=== PATIENT | female | born 1955 | race Caucasian/White ===

== ENCOUNTER 2017-02-03 05:19 | Inpatient (IN) | payer BC ==
[2017-01-14 08:31] VITALS: BMI 29.0
--- NOTE | 2017-01-14 09:10 | PAT Medication Instructions ---
Service Date Jan 14, 2017. Current Home Medication List Aspirin (Aspir-81), 1 TAB PO HS Atorvastatin (Lipitor), 1 TAB PO HS Cyanocobalamin (Vitamin B 12), 1,000 MG PO QPM Cyclobenzaprine Hcl (Flexeril), 2 TAB PO HS Montelukast Sodium (Montelukast Sodium), 1 TAB PO QPM Nortriptyline (Pamelor), 25 MG PO QPM [ibuprofin arthritis], 650 MG PO TID PRN for Pain Medication Instructions For Your Scheduled Surgery -Check with surgeon for instructions: [ibuprofin arthritis], 650 MG PO TID PRN for Pain -Check with surgeon/preparation room manager for instructions: ASA 81mg HS - Take the following medications as scheduled the night before surgery: Nortriptyline (Pamelor), 25 MG PO QPM Montelukast Sodium (Montelukast Sodium), 1 TAB PO QPM Cyclobenzaprine Hcl (Flexeril), 2 TAB PO HS Atorvastatin (Lipitor), 1 TAB PO HS Cyanocobalamin (Vitamin B 12), 1,000 MG PO QPM If you have any questions please call us at [phone] or [phone] or [phone]
[2017-01-14 09:45] LABS: BASO % 0.3 %; BASO ABS # 0.02 K/uL (0-0.2); COMPLETE YES; EOS % 2.5 %; HEMATOCRIT 41.3 % (37-47); IG% 0.2 %; LYMPH % 16.1 %; LYMPH ABS # 1.01 K/uL (1.2-3.4); MEAN CELL VOLUME 93.2 fL (80-100); MEAN CORPUSCULAR HEMOGLOBIN 31.2 pg (25-34); MEAN CORPUSCULAR HGB CONC 33.4 g/dl (32-36); MEAN PLATELET VOLUME 9.1 fL (7.4-10.4); MONO % 8.8 %; NEUT % 72.1 %; PLATELET COUNT 336 K/uL (130-400); RED BLOOD COUNT 4.43 M/uL (4.2-5.4); WHITE BLOOD COUNT 6.28 K/uL (4.8-10.8)
[2017-01-14 09:52] LABS: URINE APPEARANCE CLEAR (CLEAR); URINE BILIRUBIN NEG (NEG); URINE COLOR YELLOW; URINE EPITHELIAL CELL AUTO 0-5 /lpf (0-5); URINE NITRITE NEG (NEG); URINE PH 5.5 (4.5-7.5); URINE SPECIFIC GRAVITY 1.017 (1.000-1.030); UROBILINOGEN NEG (NEG)
[2017-01-14 09:58] LABS: MANUAL MICROSCOPIC REQUIRED? NO; REVIEW REQ? NO
[2017-01-14 10:26] LABS: BUN/CREATININE RATIO 11.7 (10-20); CALCIUM 8.9 mg/dl (8.5-10.1); CREATININE 0.87 mg/dl (0.60-1.20); POTASSIUM 4.2 mmol/L (3.5-5.1)
--- NOTE | 2017-01-29 17:43 | HISTORY & PHYSICAL EXAMINATION ---
DATE OF ADMISSION: 02/03/2017 CHIEF COMPLAINT: Neck pain radiates down the left arm. HISTORY OF PRESENT ILLNESS: The patient is a 61-year-old female with a longstanding history of neck pain radiating distally, extends in the left arm, goes into the hand, but pain is 7/10 on daily basis and 10/10 at its worst. She reports numbness in the left upper extremity as well. She has no right arm symptoms. Has failed to respond to conservative treatment. She has an MRI that shows C5-C6 disc herniation and stenosis with left-sided neural foraminal compression. She denies myelopathic symptoms. PAST MEDICAL HISTORY: Sleep apnea, history of shingles, psoriasis, osteoarthritis, neuroma, history of TIA, chronic headaches, dyslipidemia, coronary artery disease, degenerative disc disease, diverticulosis. PAST SURGICAL HISTORY: Tubal ligation, colonoscopy. ALLERGIES: SULFA. MEDICATIONS: Tylenol, albuterol, aspirin 81 mg, atorvastatin, Tessalon Perles, Pulmicort, Singulair, nortriptyline, Topamax, Vicodin. SOCIAL HISTORY: The patient is a nonsmoker, drinks alcohol socially. FAMILY HISTORY: Notable for renal failure, heart attack. REVIEW OF SYSTEMS: She denies fever, hearing loss, shortness of breath, chest pain, leg swelling, incontinence or weight loss. PHYSICAL EXAMINATION: GENERAL: The patient stands 5 feet and 7 inches tall, weighs 190 pounds. She ambulates with normal gait without ataxia. She has normal affect, answers questions appropriately. NECK: She has well preserved cervical range of motion with discomfort at end range and positive Spurling's to the left. Her neck shows no scars, no lymphadenopathy and no thyromegaly. HEART: She has a regular rate and rhythm on cardiac auscultation. LUNGS: Clear to auscultation bilaterally with symmetric chest excursion. No wheezing. EXTREMITIES: Exam reveals full upper extremity range of motion with no discomfort in impingement positions of the shoulders and symmetric normal deep tendon reflexes in both upper extremities. She has negative Al's bilaterally. She has 5/5 strength to mini motor testing of both upper extremities and intact sensation to light touch in all distributions. MRI was reviewed. She has a C5-C6 disc herniation& foraminal stenosis. ASSESSMENT AND PLAN: The patient has C5-C6 disc herniation, stenosis. She desires surgery due to chronicity of symptoms and failure of conservative treatment. We recommend C5-C6 ACDF. Risks are reviewed. She would like to proceed. Smoking cessation was counseled. She has been cleared medically by her PCP with stable coronary disease and has been cleared to hold ASA preoperatively and normal stress test. MARY
[2017-02-03] VITALS (15 sets, daily range): BP systolic 117–164; BP diastolic 68–91; PULSE 69–110; TEMP 35.9–36.8; O2SAT 94–97; Ht 171.4 cm; Wt 86.6 kg
[~2017-02-03] VITALS: Ht 171.4 cm; Wt 86.6 kg
[~2017-02-03 05:19] MED LIST: ASPI-232 PO; ATOR-24 PO; CEFAZOLIN 2000 MG/60 ML D5W IV SCH; CYAN1LOZ PO; CYCL10TA6 PO; IBUPROFEN PO; LACTATED RINGER'S 1000ML 1,000 ML IV SCH; MONT1TAB5 PO; NORT25CA PO; PREGABALIN 75 MG CAP PO SCH
[2017-02-03] MEDS ORDERED: TOPI25TA99 PO (05:52)
[2017-02-03] MEDS ORDERED: PREGABALIN 75 MG CAP PO SCH (06:00)
[2017-02-03] MEDS ORDERED: LACTATED RINGER'S 1000ML 1,000 ML IV SCH (06:00)
[2017-02-03] MEDS ORDERED: CEFAZOLIN 2000 MG/60 ML D5W IV SCH (06:00)
[2017-02-03] MEDS ORDERED: FENTANYL CITRATE INJ 50 MCG/1 ML 2 ML VIAL ONE ×3 (06:32→07:46)
[2017-02-03] MEDS ORDERED: MIDAZOLAM HCL 1 MG/ML 2ML VIAL ONE (06:32)
[2017-02-03] MEDS ORDERED: BACITRACIN 50000 UNIT VIAL ONE (06:50)
[2017-02-03] MEDS ORDERED: THROMBIN 5000 UNITS KIT ONE (06:50)
--- NOTE | 2017-02-03 07:17 | History & Physical Bridge Note ---
H&P Re-Evaluation Bridge Note: I have examined the patient, reviewed the History & Physical and in the interval since the performance of the History & Physical I have noted the following changes of clinical significance: No changes noted
[2017-02-03] MEDS ORDERED: HYDROmorphone INJ 2 MG/ML SYR/VIAL ONE (07:45)
[2017-02-03] MEDS ORDERED: LIDOCAINE HCL 2% 2 ML VIAL (20MG/ML) ONE (07:47)
[2017-02-03] MEDS ORDERED: ONDANSETRON INJ 2 MG/ML 2 ML VIAL ONE ×2 (07:48→08:31)
[2017-02-03] MEDS ORDERED: DEXAMETHASONE SOD INJ 4 MG/ML VIAL ONE (07:48)
[2017-02-03] MEDS ORDERED: ROCURONIUM BROMIDE 10 MG/ML 5 ML VIAL ONE (07:48)
[2017-02-03] MEDS ORDERED: FLOSEAL HEMOSTATIC MATRIX 5ML TOP ONE (08:21)
[2017-02-03] MEDS ORDERED: EpHEDrine SULFATE INJ 50 MG/ML AMP IV PRN (08:30)
[2017-02-03] MEDS ORDERED: ATROPINE SULFATE 0.1 MG/ML 5ML SYR IV PRN (08:30)
[2017-02-03] MEDS ORDERED: ONDANSETRON INJ 2 MG/ML 2 ML VIAL IV PRN ×2 (08:30→08:45)
[2017-02-03] MEDS ORDERED: GLYCOPYRROLATE INJ 0.2 MG/ML VIAL ONE (08:31)
[2017-02-03] MEDS ORDERED: NEOSTIGMINE METHYLSULFATE 1 MG/ML 10ML VIAL ONE (08:31)
--- NOTE | 2017-02-03 08:37 | [facility] Post Operative Brief Note ---
Immediate Operative Summary Operative Date Feb 03, 2017. Pre-Operative Diagnosis SPINAL STENOSIS Post-Operative Diagnosis SAME PREOP Procedure(s) Performed ANTERIOR CERVICAL DISCECTOMY AND FUSON , ALLOGRAFT, LDR Surgeon DR. Kamryn ACKERMAN Cut Off Saw Operator Surgeon(s) Georges KEENE PAC Estimated Blood Loss 10ml Findings dict Specimens NONE
[2017-02-03] MEDS ORDERED: IV FLUIDS COMPLETED PRN (08:45)
[2017-02-03] MEDS ORDERED: LORAZEPAM 0.5 MG TAB PO PRN (08:45)
[2017-02-03] MEDS ORDERED: NALOXONE HCL 0.4 MG/1 ML VIAL/CARP IV PRN (08:45)
[2017-02-03] MEDS ORDERED: ACETAMINOPHEN IV 1,000 MG in EMPTY BAG 0 ML IV PRN (08:45)
[2017-02-03] MEDS ORDERED: LORAZEPAM INJ 0.5 MG in SYRINGE 0.75 ML IV PRN (08:45)
[2017-02-03] MEDS ORDERED: DEXAMETHASONE INJ 8 MG in SYRINGE 0 ML IV PRN (08:45)
[2017-02-03] MEDS ORDERED: RACEPINEPHRINE 2.25% NEBU SOLN 0.5 ML VIAL INH PRN (08:45)
[2017-02-03] MEDS: FENTANYL CITRATE INJ 50 MCG/1 ML 2 ML VIAL IV PRN ×4 (09:15→09:40)
[2017-02-03] MEDS ORDERED: ESMOLOL HCL 10 MG/ML 10 ML VIAL ONE (09:18)
[2017-02-03] MEDS: HYDROmorphone INJ 1 MG/ML SYR IV PRN ×2 (09:54→09:59)
--- NOTE | 2017-02-03 10:17 | Anesthesiology Progress Note ---
Anesthesia Post Op Note Date & Time Feb 03, 2017 at 10:16 Vital Signs Pain Intensity: 5 Vital Signs Past 12 Hours Date Time Temp Pulse Resp B/P (MAP) Pulse Ox O2 Delivery O2 Flow Rate FiO2 02/03/17 09:49 36.5 90 16 143/82 97 Nasal Cannula 2 02/03/17 09:22 85 10 02/03/17 09:22 86 10 95 02/03/17 09:21 168/77 02/03/17 09:17 87 12 02/03/17 09:17 88 12 97 02/03/17 09:16 163/89 02/03/17 09:12 96 17 99 02/03/17 09:12 95 17 02/03/17 09:11 173/86 02/03/17 09:07 89 10 02/03/17 09:07 88 10 98 02/03/17 09:06 154/82 02/03/17 09:05 88 11 02/03/17 09:05 89 11 96 02/03/17 09:01 170/85 02/03/17 09:00 89 10 02/03/17 09:00 90 10 98 02/03/17 08:56 159/87 02/03/17 08:55 93 15 99 02/03/17 08:55 93 15 02/03/17 08:51 170/95 02/03/17 08:50 96 17 100 02/03/17 08:50 97 17 02/03/17 08:45 36.2 96 16 162/86 (101) 99 Mask 10 02/03/17 08:45 92 02/03/17 08:45 92 162/86 99 02/03/17 05:30 36.8 69 20 161/82 96 Room Air Notes Mental Status: alert / awake / arousable, participated in evaluation Pt Amnestic to Procedure: Yes Nausea / Vomiting: adequately controlled Pain: adequately controlled Airway Patency, RR, SpO2: stable & adequate BP & HR: stable & adequate Hydration State: stable & adequate Anesthetic Complications: no major complications apparent
--- NOTE | 2017-02-03 10:46 | [facility] Operative Report ---
Operative Report Operative Date Feb 03, 2017. Pre-Operative Diagnosis SPINAL STENOSIS Procedure(s) Performed ACDF C5-[address] Kamryn ACKERMAN Terrazzo Tile Maker Surgeon(s) Georges KEENE PAC Estimated Blood Loss 10ml Findings dict Specimens NONE Complication(s) None Description of Procedure PROCEDURE: After identification of the patient and operative level, patient was brought to the OR where they underwent induction of general anesthesia. Patient was then positioned supine on the [facility] OR table with all bony prominences well padded. Care was taken to avoid pressure on all bony prominences. Arms tucked to the sides and well padded. Shoulders were taped distally. Anterior neck was sterilely prepped and draped in usual fashion. Antibiotics were administered. Timeout was performed. Level was confirmed. A transverse skin incision was made on the right side of the neck at the level of the cricoid cartilage. I divided the platysma in line with the incision and performed routine anterior cervical exposure, blunt dissection of medial sternocleidomastoid. I identified the presumptive disc spaces and marked it with a marker and fluoroscopy. I then mobilized the longus colli and placed a self-retaining anterior cervical retractor and placed Icard pins in the body of C5 on C6. After placement of the pins, I applied slight distraction across the pins and then did a complete discectomy at [Level], took down the posterior osteophytes with a desiree, removed the posterior annulus and the PLL, and did foraminotomies as necessary to decompress the foramina bilaterally. I passed the probe along the nerve roots, made sure they were free of compression, and decorticated the endplates at [Level] with a high speed desiree and determined graft size with trial sizers. I then tamped PEEK cage filled with local bone and DBM putty into position and checked position with fluoroscopy, released Icard distraction, applied bone wax over the holes and then inserted LDR blade plates through the cage into the vertebral body of C5- 6. After insertion of the blades, I obtained final x-rays, I irrigated, applied FloSeal for hemostasis, put a small round drain and closed in layered fashion. All sponge and needle counts were correct at the end of the case. I attest to the content of the Intraoperative Record and any orders documented therein. Any exceptions are noted below.
[2017-02-03] MEDS ORDERED: ACETAMINOPHEN IV 100 ML IV PRN (11:15)
--- NOTE | 2017-02-03 11:27 | DIAGNOSTIC IMAGING REPORT ---
INTRAOPERATIVE RADIOGRAPHS CLINICAL HISTORY: C5-C6 spinal fusion. Fluoroscopy time: 8 seconds. FINDINGS: 2 spot fluoroscopic views of the cervical spine are presented. There is evidence of discectomy with anterior fusion at C5-C6. The orthopedic hardware appears intact. An endotracheal tube is noted. IMPRESSION: Intraoperative images from anterior C5-C6 spinal fusion as above. Electronically signed by: Elias Baig M.D. 02/03/2017 11:26 AM Dictated Date/Time: 02/03/2017 11:25 AM
[2017-02-03] MEDS: SODIUM CHLORIDE 0.9% 1000ML 1,000 ML IV SCH ×2 (11:33→23:46)
[2017-02-03] MEDS: OXYCODONE HCL IR 5 MG TAB (IMMEDIATE RELEASE) PO PRN ×3 (11:37→19:07)
[2017-02-03] MEDS ORDERED: PNEUMOCOCCAL POLYSACCHARIDES 25 MCG/0.5 ML VIAL/SYR IM. ONE (15:15)
[2017-02-03] MEDS ORDERED: PNEUMOCOCCAL ADMINISTRATION CHARGE ONE (15:15)
[2017-02-03] MEDS: HYDROmorphone INJ 0.5 MG/0.5 ML SYR IV PRN ×2 (15:25→22:10)
[2017-02-03] MEDS: CEFAZOLIN IV 2,000 MG in DEXTROSE 5% 50ML 50 ML IV SCH ×2 (16:02→23:46)
[2017-02-03] MEDS: DEXAMETHASONE INJ 6 MG in SYRINGE 0 ML IV SCH ×2 (16:03→23:46)
[2017-02-03] MEDS ORDERED: ATORVASTATIN 40 MG TAB PO SCH (21:00)
[2017-02-03] MEDS ORDERED: CYCLOBENZAPRINE HCL 10 MG TAB PO SCH (21:00)
[2017-02-03] MEDS ORDERED: MONTELUKAST SOD 10 MG TAB PO SCH (21:00)
[2017-02-03] MEDS ORDERED: NORTRIPTYLINE HCL 25 MG CAP PO SCH (21:00)
[2017-02-03] MEDS ORDERED: TOPIRAMATE 25 MG TAB PO SCH (21:00)
[2017-02-03] MEDS ORDERED: ASPIRIN 81 MG ECTAB PO SCH (21:00)
[2017-02-03] MEDS ORDERED: NURSING VERBAL MED ORDER ONE (21:45)
[2017-02-03] MEDS ORDERED: TOPIRAMATE 25 MG TAB PO ONE (22:15)
[2017-02-04] VITALS (15 sets, daily range): BP systolic 116–129; BP diastolic 71–80; PULSE 93–106; TEMP 36.6–37.6; O2SAT 86–96
[2017-02-04] MEDS: HYDROmorphone INJ 0.5 MG/0.5 ML SYR IV PRN ×3 (05:54→13:48)
[2017-02-04] MEDS: DEXAMETHASONE INJ 6 MG in SYRINGE 0 ML IV SCH (07:17)
[2017-02-04] MEDS: CEFAZOLIN IV 2,000 MG in DEXTROSE 5% 50ML 50 ML IV SCH (07:17)
[2017-02-04] MEDS: OXYCODONE HCL IR 5 MG TAB (IMMEDIATE RELEASE) PO PRN ×2 (07:18→17:15)
--- NOTE | 2017-02-04 10:18 | Anesthesiology Progress Note ---
Anesthesia Post Op Note Date & Time Feb 04, 2017 at 10:17 Vital Signs Vital Signs Past 12 Hours Date Time Temp Pulse Resp B/P (MAP) Pulse Ox O2 Delivery O2 Flow Rate FiO2 02/04/17 09:00 37.6 101 16 119/71 91 Room Air 02/04/17 07:45 94 15 93 Room Air 02/04/17 07:15 90 Room Air 02/04/17 07:11 36.8 99 16 120/73 90 Room Air 02/04/17 07:01 36.7 95 16 117/72 (87) 90 Room Air 02/04/17 06:32 94 Room Air 02/04/17 05:15 36.6 96 14 118/75 (102) 94 Nasal Cannula 1.0 Humidified Oxygen 02/04/17 03:05 94 16 93 Nasal Cannula 2.0 02/04/17 03:00 36.8 93 16 129/76 (102) 94 Nasal Cannula 2.0 Humidified Oxygen 02/04/17 00:59 36.8 93 16 126/76 (102) 94 Nasal Cannula 2.0 Humidified Oxygen 02/03/17 23:31 Nasal Cannula 2.0 02/03/17 23:00 110 16 95 Nasal Cannula 2.0 02/03/17 23:00 36.8 109 18 159/84 (109) 94 Nasal Cannula 2.0 Notes Mental Status: alert / awake / arousable, participated in evaluation Pt Amnestic to Procedure: Yes Nausea / Vomiting: adequately controlled Pain: adequately controlled Airway Patency, RR, SpO2: stable & adequate BP & HR: stable & adequate Hydration State: stable & adequate Anesthetic Complications: no major complications apparent
[2017-02-04] MEDS ORDERED: RXC5 PO (12:15)
--- NOTE | 2017-02-04 12:17 | Discharge Instructions ---
Discharge Instructions Date of Service Feb 04, 2017. Admission Reason for Admission: Cervical Spinal Stenosis Discharge Discharge Diagnosis / Problem: same Discharge Goals Goal(s): Decrease discomfort Activity Recommendations Activity Limitations: per Instructions/Follow-up section . Instructions / Follow-Up Instructions / Follow-Up ACTIVITY RECOMMENDATIONS: SELF CARE INSTRUCTIONS AFTER CERVICAL FUSIONS 1. No smoking. Smoking drastically decreases the chance of a solid fusion. 2. No bending, lifting more than 5 pounds, or twisting (roll like a log when turning in bed). 3. You may shower 3 days after surgery. Thoroughly dry wound. Do not soak in the tub. 4. Cervical collar: Must be worn at all times including sleeping. You may remove the brace only to bath, eat and if you are sitting in a recliner. 5. Please walk as much as you can for exercise. Gradually increase the distance that you walk as your endurance increases. SPECIAL CARE INSTRUCTIONS: VERY IMPORTANT TO READ AND REVIEW A. Do not take any anti-inflammatory medications (i.e. Indocin, Advil, Aspirin, Naprosyn, Aleve, Motrin, etc.) as these may inhibit the chance of a solid fusion. Tylenol is okay to take. B. Your surgical incision has been closed with a cosmetic suture under the skin that will dissolve in about 6 weeks. In 14 days, you can use a pair of clean scissors and cut the suture that is left outside of the skin at the ends of your incision. C. Complications are uncommon, but please contact us if you have any signs or symptoms of: 1. wound infection (fever higher than 102.5 degrees F, redness, separation of wound, drainage, or increasing pain from the incision) 2. blood clots in legs (pain, swelling, redness and warmth in legs) 3. urinary tract infection (fever higher than 102.5 degrees, burning upon urination or increased frequency of urination) 4. nerve problems (inability to walk on your toes or heels, numbness, loss of bowel or bladder control) 5. any other symptoms that concern you. D. Please call the office at if you have any concerns or questions about your operation or recovery. MANAGING PAIN AFTER SPINAL SURGERY 1. Narcotic medication is intended for short-term use and will be provided for surgical pain. Surgical pain usually lasts for a period of 4-6 weeks. Narcotic medication includes Percocet, Vicodin, Darvocet, Tylenol #3 or Lortab. 2. Longer-term pain is more appropriately treated with non-narcotic medication such as Tylenol ES. 3. Muscle spasm is not appropriately treated with narcotics. Muscle relaxers such as Soma, Flexeril or Skelaxin can be used along with Tylenol ES. 4. Remember that we all live with some "aches and pains". This is not unusual or uncommon after an injury or as we get older. 5. We will provide appropriate medication within the normal guidelines of their prescribed use. We will also be very cautious and aware of potential abuse and extended duration of patients' medication needs. 6. Please allow 2-3 days to process refills. Prescriptions will not be mailed but must be picked up at the office. FOLLOW UP VISIT: Keep your scheduled follow-up appointment. Any questions, please call the office at . Current Hospital Diet Patient's current hospital diet: Clear Liquid Diet Discharge Diet Recommended Diet: Regular Diet Procedures Procedures Performed: ANTERIOR CERVICAL DISCECTOMY AND FUSON , ALLOGRAFT, LDR Pending Studies Studies pending at discharge: no Medical Emergencies . Who to Call and When: Medical Emergencies: If at any time you feel your situation is an emergency, please call 911 immediately. . Non-Emergent Contact Non-Emergency issues call your: Surgeon . "Provider Documentation" section prepared by Cliff Zafar. . VTE Core Measure Inpt VTE Proph given/why not?: SCD's [place] Drug Monitoring Program Search Results: patient reviewed within database, no issues identified
--- NOTE | 2017-02-04 12:24 | Orthopedic Progress Note ---
Orthopedic Progress Note Date of Service Feb 04, 2017. Subjective Post OP Day: 1 Reports: feeling well, pain controlled w PO medications, Denies: complaints, chest pain, SOB, nausea / vomiting, light headedness, calf pain, using AMBULANCE DRIVER Objective N/V intact, dressing C/D/I, A&O x3, hemovac drainage Date Time Temp Pulse Resp B/P (MAP) Pulse Ox O2 Delivery O2 Flow Rate FiO2 02/04/17 11:20 106 17 86 Room Air 02/04/17 10:50 36.7 100 15 121/80 92 Room Air 02/04/17 09:00 37.6 101 16 119/71 91 Room Air 02/04/17 07:45 94 15 93 Room Air 02/04/17 07:15 90 Room Air 02/04/17 07:11 36.8 99 16 120/73 90 Room Air 02/04/17 07:01 36.7 95 16 117/72 (87) 90 Room Air 02/04/17 06:32 94 Room Air 02/04/17 05:15 36.6 96 14 118/75 (102) 94 Nasal Cannula 1.0 Humidified Oxygen 02/04/17 03:05 94 16 93 Nasal Cannula 2.0 02/04/17 03:00 36.8 93 16 129/76 (102) 94 Nasal Cannula 2.0 Humidified Oxygen 02/04/17 00:59 36.8 93 16 126/76 (102) 94 Nasal Cannula 2.0 Humidified Oxygen 02/03/17 23:31 Nasal Cannula 2.0 02/03/17 23:00 110 16 95 Nasal Cannula 2.0 02/03/17 23:00 36.8 109 18 159/84 (109) 94 Nasal Cannula 2.0 02/03/17 20:44 36.6 107 17 147/91 94 Nasal Cannula 2.0 Humidified Oxygen 02/03/17 19:09 103 16 95 Nasal Cannula 2.0 02/03/17 19:00 36.8 107 16 162/85 95 Nasal Cannula 2.0 Humidified Oxygen 02/03/17 17:02 36.6 104 18 157/85 94 Nasal Cannula 2.0 Humidified Oxygen 02/03/17 15:10 96 Nasal Cannula 2.0 Humidified Oxygen 02/03/17 15:00 36.6 95 18 126/80 96 Nasal Cannula 2.0 Humidified Oxygen 02/03/17 14:41 104 14 96 Nasal Cannula 2.0 02/03/17 14:19 95 Nasal Cannula 2.0 02/03/17 13:34 35.9 107 18 117/68 (84) 94 Humidified Oxygen 2.0 02/03/17 12:25 86 19 138/84 (102) 97 Humidified Oxygen 2.0 Assessment & Plan Assessment: feels well but SpO2 low after ambulation this AM. likely atelectasis but will check CXR and give ISB, if improves with this and ambulation can d/c home if not will consult medicine
--- NOTE | 2017-02-04 13:29 | DIAGNOSTIC IMAGING REPORT ---
CHEST 2 VIEWS ROUTINE HISTORY: Low oxygen levels. COMPARISON: None. FINDINGS: Cholecystectomy. The heart is normal in size. No pleural effusions. No pneumothorax. The left lung is clear.] Lobe linear densities and left lung base linear densities. IMPRESSION: Linear densities within the right middle lobe and left lung base. This favors atelectasis or scarring. A pneumonia could also have a similar appearance. Consider one month chest x-ray follow-up to ensure resolution. Electronically signed by: Sudhakar Gomez M.D. 02/04/2017 1:28 PM Dictated Date/Time: 02/04/2017 1:26 PM
[2017-02-04] MEDS ORDERED: TOPIRAMATE 50 MG TAB PO SCH (21:00)
--- NOTE | 2017-02-15 17:01 | Discharge Summary ---
Orthopedic Discharge Summary Admission Date/Reason Feb 03, 2017 at 06:29 Cervical Spinal Stenosis. Discharge Date/Disposition Feb 04, 2017 Home Diagnosis Principal Diagnosis: same Medication Reconciliation New Medications: Oxycodone HCl (Oxycodone HCl) 5 Mg Tab 5-10 MG PO Q4H PRN for moderate-severe pain, #60 TAB Continued Medications: Aspirin (Aspir-81) 81 Mg Tab 1 TAB PO HS for 90 Days, TAB 3 Refills Atorvastatin (Lipitor) 40 Mg Tab 1 TAB PO HS for 90 Days, #90 TAB 3 Refills Cyanocobalamin (Vitamin B 12) 100 Mcg Torsten 1000 MG PO QPM Cyclobenzaprine Hcl (Flexeril) 10 Mg Tab 2 TAB PO HS for 30 Days, #30 TAB Montelukast Sodium (Montelukast Sodium) 10 Mg Tab 1 TAB PO QPM for 30 Days, TAB 5 Refills Nortriptyline (Pamelor) 25 Mg Cap 25 MG PO QPM, CAP Topiramate (Topamax ) 25 Mg Tab 50 MG PO HS, TAB [ibuprofin arthritis] () 650 MG PO TID PRN for Pain Admission Physical Exam As per Admitting History & Physical. Hospital Course She was admitted for elective ACDF which she tolerated without complication. Postop she had her pain controlled and tolerated diet. She ambulated but SPo2 was noted to be low on room air. CXR showed atelectasis. After ISB and ambulation sats improved and she was discharged in stable condition. Discharge Instructions Please refer to the electronic Patient Visit Report (Discharge Instructions) for additional information.
== END 2017-02-04 17:46 | disposition home or self-care (01) | DRG 472 ==
LOC: C.ACU 05:19 → C.3E 06:29 → ENRESERV 09:41
PROVIDERS: ADMIT Orthopaedic Surgery Orthopaedic Surgery of the Spine; ATTEND Orthopaedic Surgery Orthopaedic Surgery of the Spine
PROC: 0RG10A0 Fusion of Cervical Vertebral Joint with Interbody Fusion Device, Anterior Approach, Anterior Column, Open Approach (ICD-10-PCS; principal; 2017-02-03 07:30)
PROC: 0RT30ZZ Resection of Cervical Vertebral Disc, Open Approach (ICD-10-PCS; principal; 2017-02-03 07:30)
DX: M50.222 Other cervical disc displacement at C5-C6 level (principal); B02.29 Other postherpetic nervous system involvement; M48.02 Spinal stenosis, cervical region; I25.10 Atherosclerotic heart disease of native coronary artery without angina pectoris; M19.90 Unspecified osteoarthritis, unspecified site; E78.5 Hyperlipidemia, unspecified; K57.90 Diverticulosis of intestine, part unspecified, without perforation or abscess without bleeding; G47.30 Sleep apnea, unspecified; L40.9 Psoriasis, unspecified; Z86.73 Personal history of transient ischemic attack (TIA), and cerebral infarction without residual deficits; Z98.51 Tubal ligation status; Z88.2 Allergy status to sulfonamides; Z79.82 Long term (current) use of aspirin; Z79.899 Other long term (current) drug therapy

== ENCOUNTER → 2017-02-17 | Outpatient (CLI) | payer BC ==
[~2017-02-17] MED LIST changes: -CEFAZOLIN 2000 MG/60 ML D5W IV SCH; -LACTATED RINGER'S 1000ML 1,000 ML IV SCH; -PREGABALIN 75 MG CAP PO SCH; +RXC5 PO; +TOPI25TA99 PO
== END | disposition home or self-care (01) ==
LOC: C.PAPS 13:20
PROVIDERS: ATTEND Obstetrics & Gynecology
DX: Z01.419 Encounter for gynecological examination (general) (routine) without abnormal findings (principal)

== ENCOUNTER → 2017-06-03 | Outpatient (CLI) | payer BC ==
--- NOTE | 2017-06-03 14:33 | MAMMOGRAPHY REPORT ---
BILATERAL DIGITAL DIAGNOSTIC MAMMOGRAM TOMOSYNTHESIS WITH CAD AND TARGETED RIGHT ULTRASOUND: 06/03/20 17 CLINICAL HISTORY: The patient reports right nipple inversion for approximately 2 years. She also rep orts nonspontaneous yellow right nipple discharge for approximately 2 years. She denies any bloody n ipple discharge, palpable lumps, or other complaints. TECHNIQUE: Breast tomosynthesis in addition to standard 2D mammography was performed. Current study was also evaluated with a Computer Aided Detection (CAD) system. Bilateral CC and MLO 2-D and tomosy nthesis images and spot magnification right cc and ML views were obtained. COMPARISON: Comparison is made to exam dated: 12/21/2000 mammogram. BREAST COMPOSITION: There are scattered areas of fibroglandular density in both breasts. FINDINGS: There are no suspicious masses or other suspicious mammographic abnormalities within the r ight subareolar region. There is an asymmetry in the right lateral breast on the cc view which is th ought to project superiorly on the MLO view and has the appearance of normal fibroglandular tissue al though ultrasound was performed. The remainder of both breasts demonstrate no suspicious masses, maged cifications, or areas of architectural distortion. A linear scar marker denotes a scar on the right 6:00 breast. A few scattered bilateral benign-appearing calcifications are noted. Targeted ultrasound was performed of the right subareolar breast, which shows no suspicious masses or other suspicious sonographic abnormalities. Ultrasound was performed of the right upper outer quadr ant in the region of the mammographic asymmetry, which shows sonographically normal tissue without ev idence of a mass or other suspicious sonographic abnormality. Given the lack of a sonographic correl ate, the asymmetry is benign and felt to represent normal fibroglandular tissue. IMPRESSION: ACR BI-RADS CATEGORY 2: BENIGN, TARGETED ULTRASOUND ACR BI-RADS CATEGORY 2: BENIGN No suspicious mammographic or sonographic abnormality to explain right nipple inversion and nonsponta neous yellow right nipple discharge. There is no mammographic or targeted sonographic evidence of ma lignancy. Recommend clinical follow-up for right breast complaints. Also recommend routine bilatera l screening mammograms in one year. The patient has been verbally notified of the results. Approximately 10% of breast cancers are not detected with mammography. A negative mammographic report should not delay biopsy if a clinically suggestive mass is present. Valerie Yee M.D. ah/:06/03/2017 11:27:42 Hand Shaker: Suzanne BARBER)(Lu), [facility] letter sent: Normal 1/2 BI-RADS Code: ACR BI-RADS Category 2: Benign Ultrasound BI-RADS: ACR BI-RADS Category 2: Benign
== END | disposition home or self-care (01) ==
LOC: C.MAMM 10:49
PROVIDERS: ATTEND Obstetrics & Gynecology
DX: N64.59 Other signs and symptoms in breast (principal)